=== PATIENT | male | born 1955 | race Two or more races ===

== ENCOUNTER 2025-07-05 14:29 | Outpatient (CLI) | payer OTHER, MEDICARE ==
[2025-07-05 14:58] LABS: INR 2.2 (0.9-1.15); Prothrombin Time 21.6 sec (9.3-11.8)
== END 2025-07-05 17:00 | disposition home or self-care (01) ==
LOC: LAB 14:29
PROVIDERS: ATTEND Physician Assistant
DX: D68.69 Other thrombophilia (principal); I48.91 Unspecified atrial fibrillation
CPT/HCPCS: 36415; 85610

== ENCOUNTER 2025-07-13 12:36 | Outpatient (CLI) | payer OTHER ==
[2025-07-13] MEDS ORDERED: methylPREDNISolone ACETATE 80 MG/ML VL ONE (12:47)
[2025-07-13] MEDS ORDERED: BUPIVACAINE HCL 0.25% P/F 10 ML VIAL ONE (12:47)
[2025-07-13] MEDS ORDERED: IOHEXOL 300 MG/ML 100ML BOTTLE IJ ONE (12:48)
[2025-07-13] MEDS ORDERED: LIDOCAINE 2%HCL (LOCAL ANESTH.) INJ 10ml MDV ONE (12:48)
--- NOTE | 2025-07-13 15:32 | DVH ---
XY C ARM FLUOROSCOPY UP TO 60MIN HISTORY: STEROID INJECTION RT HIP COMPARISON: None PROCEDURE: The risks and benefits of the procedure including infection, hemorrhage and technical failure were discussed with the patient, who agreed to proceed. The patient was positioned supine on the fluoroscopy table. Time out was performed. The right was localized using fluoroscopy, and the location on the skin for needle insertion was marked. The region was prepped and draped using routine sterile technique. Approximately 1 cc of lidocaine was injected for local anesthesia. A 22 gauge spinal needle was inserted, and intra-articular location was confirmed by injection of less than 1 cc of iodinated contrast. 1 cc of methylprednisolone (80 mg/cc) and 4 cc of Bupivacaine (0.25%) and 5 cc of 2% Lidocaine was then injected without complication. Fluoroscopy time was 0.3 minutes. The patient was informed of the temporary precautions to take following the procedure as well as of the potential signs and symptoms which may indicate the need to contact physician, and expressed understanding of this discussion. IMPRESSION: Successful steroid and anesthetic injection of the right hip.
--- NOTE | 2025-07-14 12:04 | DVH ---
RIGHT LEFT HIP RADIOGRAPH. CLINICAL INDICATION: RT HIP STEROID INJECTION TECHNIQUE: Single-view right hip FINDINGS: There is no evidence of fracture, subluxation or dislocation.The alignment is within normal limits.The bony mineralization is normal.No radiopaque foreign body is identified. IMPRESSION: 1. No evidence of acute bony injury. 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
== END 2025-07-13 17:00 | disposition home or self-care (01) ==
LOC: XYW 12:36
PROVIDERS: ATTEND Physician Assistant Medical
DX: M16.11 Unilateral primary osteoarthritis, right hip (principal); I11.0 Hypertensive heart disease with heart failure; I50.22 Chronic systolic (congestive) heart failure; I48.91 Unspecified atrial fibrillation; I35.1 Nonrheumatic aortic (valve) insufficiency; E11.51 Type 2 diabetes mellitus with diabetic peripheral angiopathy without gangrene; E78.5 Hyperlipidemia, unspecified; F32.A Depression, unspecified; Z79.01 Long term (current) use of anticoagulants; Z79.84 Long term (current) use of oral hypoglycemic drugs; Z79.899 Other long term (current) drug therapy; Z88.2 Allergy status to sulfonamides
CPT/HCPCS: 20610; 73501; 77002; J1010; J2003; J3490; Q9967; 76000